=== PATIENT | female | born 1960 | race Caucasian/White ===

== ENCOUNTER 2016-07-05 15:33 | Outpatient (CLI) | payer OTHER | END 2016-07-05 21:07 | disposition home or self-care (01) | LOC: MLB 15:33 | PROVIDERS: ATTEND Internal Medicine Geriatric Medicine | DX: L02.31 Cutaneous abscess of buttock (principal); E11.9 Type 2 diabetes mellitus without complications ==

== ENCOUNTER 2016-10-07 08:47 | Emergency (ER) | payer OTHER ==
[~2016-10-07] VITALS: Ht 157.5 cm; Wt 72.6 kg
[2016-10-07 08:51] VITALS: BP 182/82
[2016-10-07 10:32] VITALS: BP 180/81
== END 2016-10-07 10:33 | disposition home or self-care (01) ==
LOC: MED 08:47
DX: S82.492A Other fracture of shaft of left fibula, initial encounter for closed fracture (principal); E11.9 Type 2 diabetes mellitus without complications; I10 Essential (primary) hypertension; Z88.1 Allergy status to other antibiotic agents; Z90.49 Acquired absence of other specified parts of digestive tract; W19.XXXA Unspecified fall, initial encounter; Y93.89 Activity, other specified; Y92.89 Other specified places as the place of occurrence of the external cause; Y99.8 Other external cause status
CPT/HCPCS: 29505; 73590; 93971; 99284

== ENCOUNTER 2017-08-15 06:52 | Outpatient (CLI) | payer OTHER ==
[2017-08-15 07:24] LABS: BASOPHILS # (AUTO) 0.1 K/uL (0.00-0.22); BASOPHILS % (AUTO) 1.1 % (0.0-2.0); EOSINOPHILS # (AUTO) 0.1 K/uL (0-0.4); EOSINOPHILS % (AUTO) 1.4 % (0.0-4.0); HEMATOCRIT 39.9 % (36-48); HEMOGLOBIN 13.4 g/dL (12.0-16.0); LYMPHOCYTES # (AUTO) 2.1 K/uL (2.5-16.5); LYMPHOCYTES % (AUTO) 31.2 % (20.5-51.1); MEAN CORPUSCULAR HEMOGLOBIN 32 pg (27-31); MEAN CORPUSCULAR HGB CONC 33 g/dL (33-37); MEAN CORPUSCULAR VOLUME 94.9 fL (80-94); MONOCYTES # (AUTO) 0.5 K/uL (0.8-1.0); MONOCYTES % (AUTO) 7.5 % (1.7-9.3); NEUTROPHILS # (AUTO) 3.9 K/uL (1.8-7.7); NEUTROPHILS % (AUTO) 58.8 % (42.2-75.2); PLATELET COUNT (AUTO) 182 K/uL (140-450); RED BLOOD CELL COUNT(AUTO) 4.21 MIL/uL (4.20-5.40); RED CELL DISTRIBUTION WIDTH 12.4 % (11.6-13.7); WHITE BLOOD COUNT (AUTO) 6.7 K/uL (4.8-10.8)
[2017-08-15 15:27] LABS: ALBUMIN 3.6 g/dL (3.4-5.0); ANION GAP 14.4 (8-16); CARBON DIOXIDE 25.7 mmol/L (21-32); CHOL/HDL RATIO 5.3 (1-4.5); CREATININE 0.7 mg/dL (0.6-1.3); POTASSIUM 4.1 mmol/L (3.5-5.1); TOTAL BILIRUBIN 0.3 mg/dL (0.0-1.0)
[2017-08-15 16:44] LABS: THYROID STIMULATING HORMONE 2.4 uIU/mL (0.34-3.74)
== END 2017-08-15 20:52 | disposition home or self-care (01) ==
LOC: MLB 06:52
PROVIDERS: ATTEND Internal Medicine Geriatric Medicine
DX: Z00.01 Encounter for general adult medical examination with abnormal findings (principal); E11.9 Type 2 diabetes mellitus without complications
CPT/HCPCS: 36415; 80053; 82043; 82306; 83036; 84443; 85025

== ENCOUNTER 2017-08-16 06:23 | Outpatient (CLI) | payer OTHER | END 2017-08-16 20:49 | disposition home or self-care (01) | LOC: MRD 06:23 → EEVIPCON 06:23 → MRD 20:49 | PROVIDERS: ATTEND Internal Medicine Geriatric Medicine | DX: Z47.89 Encounter for other orthopedic aftercare (principal); Z91.81 History of falling | CPT/HCPCS: 73562 ==

== ENCOUNTER 2018-07-19 07:05 | Outpatient (CLI) | payer OTHER ==
[2018-07-19 08:11] LABS: ANION GAP 12.7 (8-16); CARBON DIOXIDE 27.1 mmol/L (21-32); CREATININE 0.6 mg/dL (0.6-1.3); POTASSIUM 3.8 mmol/L (3.5-5.1)
[2018-07-19 08:18] LABS: ALBUMIN 2.8 g/dL (3.4-5.0); CHOL/HDL RATIO 4.8 (1-4.5); TOTAL BILIRUBIN 0.4 mg/dL (0.0-1.0)
== END 2018-07-19 20:33 | disposition home or self-care (01) ==
LOC: MLB 07:05
PROVIDERS: ATTEND Internal Medicine Geriatric Medicine
DX: E55.9 Vitamin D deficiency, unspecified (principal); E11.9 Type 2 diabetes mellitus without complications; I10 Essential (primary) hypertension
CPT/HCPCS: 36415; 80053; 82306; 83036

== ENCOUNTER 2019-04-13 12:21 | Emergency (ER) | payer OTHER ==
[~2019-04-13] VITALS: Ht 157.5 cm; Wt 73.5 kg
[2019-04-13 12:23] VITALS: BP 198/91
--- NOTE | 2019-04-13 12:23 | NUR ---
TO BED # 12 AMBULATORY
--- NOTE | 2019-04-13 12:30 | NUR ---
C/O SOB FOR 4 DAYS WITH PRODUCTIVE COUGH, RUNNY NOSE, AND HEADACHE PAIN 5/10. BILTERAL CRACKLES THROUGHOUT LUNG STEEN. RR EVEN AND UNLABORED. PT PLACED ON PULSE OX. PER PATIENT, SHE HAS NOT BEEN TAKING BP MEDICATIONS. PT HYPERTENSIVE. PT ALERT AND AWAKE. PMH- HTN, DM, PNEUMONIA
--- NOTE | 2019-04-13 13:50 | NUR ---
EKG COMPLETED BY RAMON MANDUJANO, READS SR AT 89 BPM
[2019-04-13 14:05] LABS: BASOPHILS % (AUTO) 0.4 % (0.0-2.0); EOSINOPHILS # (AUTO) 0.1 K/uL (0-0.4); EOSINOPHILS % (AUTO) 1.4 % (0.0-4.0); HEMATOCRIT 37.2 % (36-48); HEMOGLOBIN 12.5 g/dL (12.0-16.0); LYMPHOCYTES # (AUTO) 1.8 K/uL (2.5-16.5); MEAN CORPUSCULAR HEMOGLOBIN 32 pg (27-31); MEAN CORPUSCULAR HGB CONC 34 g/dL (33-37); MEAN CORPUSCULAR VOLUME 96.3 fL (80-94); MONOCYTES # (AUTO) 0.4 K/uL (0.8-1.0); MONOCYTES % (AUTO) 7.3 % (1.7-9.3); NEUTROPHILS # (AUTO) 3.6 K/uL (1.8-7.7); NEUTROPHILS % (AUTO) 60.9 % (42.2-75.2); PLATELET COUNT (AUTO) 195 K/uL (140-450); RED BLOOD CELL COUNT(AUTO) 3.86 MIL/uL (4.20-5.40); RED CELL DISTRIBUTION WIDTH 13.2 % (11.6-13.7); WHITE BLOOD COUNT (AUTO) 5.9 K/uL (4.8-10.8)
[2019-04-13 14:41] LABS: POTASSIUM 3.9 mmol/L (3.5-5.1)
[2019-04-13 14:42] LABS: ANION GAP 13.2 (8-16); CARBON DIOXIDE 26.7 mmol/L (21-32); CREATININE 1.1 mg/dL (0.6-1.3)
[2019-04-13 14:43] LABS: ALBUMIN 2.5 g/dL (3.4-5.0); TOTAL BILIRUBIN 0.2 mg/dL (0.0-1.0)
--- NOTE | 2019-04-13 15:19 | NUR ---
Patient discharged with v/s stable. Written and verbal after care instructions given and explained pulmonary edema. Patient alert, oriented and verbalized understanding of instructions. Ambulatory with steady gait. All questions addressed prior to discharge. ID band removed. Patient advised to follow up with PMD. Rx of lasix, losartan tab given. Patient educated on indication of medication including possible reaction and side effects. Opportunity to ask questions provided and answered.pt given excuse for work .
[2019-04-13 15:21] VITALS: BP 180/85
== END 2019-04-13 15:19 | disposition home or self-care (01) ==
LOC: MED 12:21
DX: J81.1 Chronic pulmonary edema (principal); E11.9 Type 2 diabetes mellitus without complications; I10 Essential (primary) hypertension; Z88.1 Allergy status to other antibiotic agents
CPT/HCPCS: 36415; 71045; 80053; 83880; 84484; 85025; 93005; 99284; Q0092

== ENCOUNTER 2019-05-30 08:51 | Outpatient (CLI) | payer OTHER | END 2019-05-30 20:51 | disposition home or self-care (01) | LOC: MRD 08:51 | PROVIDERS: ATTEND Internal Medicine Geriatric Medicine | DX: Z09 Encounter for follow-up examination after completed treatment for conditions other than malignant neoplasm (principal); I51.7 Cardiomegaly; J81.1 Chronic pulmonary edema | CPT/HCPCS: 71046 ==

== ENCOUNTER 2020-08-29 06:50 | Outpatient (CLI) | payer OTHER ==
[2020-08-29 07:20] LABS: BASOPHILS % (AUTO) 0.6 % (0.0-2.0); EOSINOPHILS # (AUTO) 0.1 K/uL (0-0.4); EOSINOPHILS % (AUTO) 1.7 % (0.0-4.0); HEMATOCRIT 38.4 % (36-48); HEMOGLOBIN 12.8 g/dL (12.0-16.0); LYMPHOCYTES # (AUTO) 1.6 K/uL (2.5-16.5); LYMPHOCYTES % (AUTO) 29.3 % (20.5-51.1); MEAN CORPUSCULAR HEMOGLOBIN 32 pg (27-31); MEAN CORPUSCULAR HGB CONC 33 g/dL (33-37); MEAN CORPUSCULAR VOLUME 95.7 fL (80-94); MONOCYTES # (AUTO) 0.4 K/uL (0.8-1.0); MONOCYTES % (AUTO) 6.8 % (1.7-9.3); NEUTROPHILS # (AUTO) 3.4 K/uL (1.8-7.7); NEUTROPHILS % (AUTO) 61.6 % (42.2-75.2); PLATELET COUNT (AUTO) 194 K/uL (140-450); RED BLOOD CELL COUNT(AUTO) 4.01 MIL/uL (4.20-5.40); RED CELL DISTRIBUTION WIDTH 12.9 % (11.6-13.7); WHITE BLOOD COUNT (AUTO) 5.4 K/uL (4.8-10.8)
[2020-08-29 08:02] LABS: ALBUMIN 2.5 g/dL (3.4-5.0); ANION GAP 11.2 (8-16); CARBON DIOXIDE 26.2 mmol/L (21-32); CHOL/HDL RATIO 5.3 (1-4.5); CREATININE 1.5 mg/dL (0.6-1.3); POTASSIUM 4.4 mmol/L (3.5-5.1); TOTAL BILIRUBIN 0.3 mg/dL (0.0-1.0)
[2020-08-29 10:18] LABS: APPEARANCE,URINE SL CLOUDY (CLEAR); BILIRUBIN,URINE NEGATIVE (NEGATIVE); BLOOD, URINE 1+ (NEGATIVE); COLOR,URINE YELLOW (YELLOW); LEUKOCYTE ESTERASE ,URINE NEGATIVE (NEGATIVE); NITRITE, URINE NEGATIVE (NEGATIVE); UGLUCOSE 3+ (NEGATIVE)
[2020-08-29 10:50] LABS: FINE GRANULAR CASTS,URINE 0-10 /LPF (None Seen); HYALINE CASTS, URINE 0-10 /LPF (None Seen)
[2020-08-30 10:06] LABS: MICROALBUMIN, UR RANDOM 4350.7 ug/mL (Not Estab.)
== END 2020-08-29 17:59 | disposition home or self-care (01) ==
LOC: MLB 06:50
PROVIDERS: ATTEND Internal Medicine Geriatric Medicine
DX: E11.9 Type 2 diabetes mellitus without complications (principal); E55.9 Vitamin D deficiency, unspecified
CPT/HCPCS: 36415; 80053; 81001; 82043; 82306; 83036; 85025; 87086